=== PATIENT | female | born 2000 | race Caucasian/White ===

== ENCOUNTER → 2021-08-01 10:58 | Outpatient (CLI) | payer OTHER, SELFPAY ==
--- NOTE | 2021-08-01 11:02 | DI.RAD.S_ITS ---
PROCEDURE: XR FOOT LT MIN 3V INDICATIONS: Foot pain TECHNIQUE: 3 views of the foot were acquired. COMPARISON: None. FINDINGS: Bones: No fractures or dislocations. No suspicious bony lesions. Soft tissues: No tibiotalar joint effusion. Achilles tendon appears normal. IMPRESSION: No left foot fracture or dislocation. No finding to explain patient's symptoms. Dictated by: Mansoor Lujan M.D. on 08/01/2021 at 11:43 Approved by: Mansoor Lujan M.D. on 08/01/2021 at 11:43
== END ==
PROVIDERS: Referring Provider Student in an Organized Health Care Education/Training Program; Visit Provider Student in an Organized Health Care Education/Training Program
DX: M79.672 Pain in left foot (principal)
CPT/HCPCS: 73630